=== PATIENT | female | born 1995 | race African-American/Black ===

== ENCOUNTER 2017-01-22 19:28 | Inpatient (IN) | payer OTHER ==
--- NOTE | ~2017-01-22 | A ---
[facility] Nutrition Therapy DATE: 01/23/17 Patient: JOHN BOLES Physician: JESSICA Address: [address] [place] [address] Room/Bed: [address], Zip: [place] [address] Admit Date: 01/22/17 Date of : [birth year] Height: 5 4 Weight: [phone] NUTRITIONAL ASSESSMENT: REASON: UNINTENTIONAL WEIGHT LOSS PATIENT ADMITTED FOR SI AND DEPRESSION PMH: NONE Anthropometrics: HT: 64", WT: 117#, BMI: 20.1, %IBW: 98 Labs: 01/23/17- NURITIONAL LABS WNL Meds: REMERON Assessment: PATIENT IS A 21 Y/O FEMALE ADMITTED FOR SI AND DEPRESSION. PATIENT IS CURRENTLY EMPLOYED, LIVES WITH HER MOTHER, IS A DAILY SMOKER, USES MARIJUANA DAILY, AND HAS OCCASIONAL ETOH USE. PATIENT STATED A POOR APPETITE WITH A 75# WEIGHT LOSS OVER THE LAST YEAR, AND SHE HAS NOT BEEN SLEEPING (2HRS/NIGHT). CURRENT PO INTAKES ARE NOT AVAILABLE D/T PATIENT RECENTLY ADMITTED TO FACILITY. WEIGHT HX IN [facility] DOES SHOW A STEADY WEIGHT DECREASE OVER THE LAST 4 YEARS. WEIGHT 4 YEARS AGO WAS 190# AND WEIGHT ON 05/2016 WAS 142#. PATIENT'S NUTRITION LABS WERE ALL WNL, HER BMI IS WITHIN A HEALTHY RANGE, AND SHE IS 98% OF HER IBW. PATIENT IS ON A REGULAR DIET, AND THERE ARE NO SKIN OR GI ISSUES NOTED ATT. PATIENT IS CURRENTLY ON REMERON, WHICH IS AN APPETITE STIMULANT AND SLEEP AID, AND MAY CAUSE PATIENT'S WEIGHT TO INCREASE. Dx: UNINTENTIONAL WEIGHT LOSS R/T CURRENT CONDITION, DEPRESSION AEB WEIGHT LOSS AND DECREASED APPETITE, NUTRITIONAL RISK POINT Intervention: REGULAR DIET, MEDS PER MD, PSYCH Monitoring, Evaluation and Goals: 1. ADEQUATE PO INTAKES >50% OF MEALS 2. PREVENT, CORRECT MICRO/MACRO NUTRIENT DEFICIENCIES 3. WEIGHT; PREVENT ANY FURTHER WEIGHT LOSS MONITOR: WEIGHTS, PO/FLUID INTAKES, LABS Recommendations: 1. CONTINUE REGULAR DIET TOLERATED. OFFER SNACKS BETWEEN MEALS. IF PATIENT HAS C/O HUNGER SEND ORDER FOR LARGER PORTIONS AND RD WILL APPROVE. IT WILL TAKE ~5-7 DAYS FOR REMERON TO AFFECT PATIENT'S APPETITE [facility] Nutrition Therapy DATE: 06/30/17 Patient: JOHN BOLES Physician: JESSICA Address: [address] [facility] Room/Bed: [address], Zip: [place] [address] Admit Date: 01/22/17 Date of : [birth year] Height: 5 4 Weight: [phone] 2. ENCOURAGE ADEQUATE PO AND FLUID INTAKES 3. IF PO INTAKES ARE BELOW 50% OF MEALS PLEASE ORDER ENSURE BID TO PROMOTE ADEQUATE KCAL AND PROTEIN INTAKES, AND PREVENT FURTHER WEIGHT LOSS 4. OBTAIN WEIGHTS ROUTINELY (EVERY 3-4 DAYS) RD TO F/U PER PROTOCOL AND PRN R/T PATIENT MILDLY/MODERATELY COMPROMISED Respectfully, JACQUELINE RO, JONES, LD [facility] cc: client file
--- NOTE | ~2017-01-22 | PN ---
Unit #: [id number] #: [id number] Patient: JOHN BOLES [id number] [place] [address] [id number] I MR#: [id number] NAME: JOHN BOLES ROOM: 71 Age: 21 Sex: F Admission Date: 01/22/2017 : 1995 Attending Physician: Darwin Capone M.D. Admitting Physician: Darwin Capone M.D. Primary Care Physician: Denilson Edwards M.D. [facility] PROGRESS NOTES DATE January 24, [address] Darwin Capone at [facility] DISCUSSION Upon today's assessment, the patient was abed but stated that she was feeling "much better." She reports that her mood is happier and that she currently denies suicidal or homicidal ideation, and verbalizes no plan or intent. She denies auditory or visual hallucinations. She reports that her sleep is okay and that Remeron has been very helpful in helping her to maintain her sleep at this time. Dictated by... JOVANNY Henry TD: 01/28/2017 05:23 JOB #: [id number] [facility] PROGRESS NOTES Page 1 of 1 X MAKSIM WYATT PROGRESS NOTE
--- NOTE | ~2017-01-22 | HP ---
Unit #: [id number] #: [id number] Patient: JOHANA BOLES [id number] [place] [address] [id number] I MR#: [id number] NAME: JOHANA BOLES ROOM: P181 Age: 21 Sex: F Admission Date: 01/22/2017 : 1995 Attending Physician: Darwin Capone M.D. Admitting Physician: Darwin Capone M.D. Primary Care Physician: Denilson Edwards M.D. HISTORY AND PHYSICAL HISTORY OF PRESENT ILLNESS Johana is a 21 year old admitted to [facility] with depression and verbalizing wanting to hurt herself. PAST MEDICAL HISTORY Nothing significant. PAST SURGICAL HISTORY Cholecystectomy. ALLERGIES No known drug allergies. SOCIAL HISTORY Smokes blacks on occasion. Denies alcohol. Admits to using marijuana on a daily basis. FAMILY HISTORY Medically noncontributory. REVIEW OF SYSTEMS CONSTITUTIONAL: No fever or chills. HEENT: Denies any sore throat, ear pain or runny nose. CARDIOVASCULAR: Denies chest pain, irregular heart rhythm or palpitations. CHEST: Denies shortness of breath or cough. No hemoptysis. GASTROINTESTINAL: Denies nausea, vomiting, diarrhea or chronic constipation. ENDOCRINE: Denies history of increased thirst or urination. No recent significant weight loss or gain. GENITOURINARY: Denies dysuria, frequency, or hematuria. SKIN: Denies any rashes. HEMATOLOGIC: Denies history of increased bleeding or bruising. MUSCULOSKELETAL: Denies any hot, swollen joints. No generalized muscle pain. NEUROLOGIC: Denies problems with vision or speech. No frequent, severe headaches. No numbness, tingling or weakness in any extremities. Denies loss of bladder or bowel control. CURRENT MEDICATIONS 1. Remeron 30 mg q.h.s. 2. Milk of Magnesia p.r.n. 3. Maalox p.r.n. 4. Tylenol p.r.n. Unit #: [id number] #: [id number] Patient: JOHANA BOLES 5. Nicotine patch 7 mg daily. PHYSICAL EXAMINATION GENERAL: Alert, well-nourished, in no apparent distress. VITAL SIGNS: Blood pressure 124/62, heart rate 80, respirations 16, temperature 98.6. WEIGHT: 117. HEIGHT: 5 feet 4 inches. SKIN: Warm and dry without rash or lesion. HEENT: Normocephalic. TMs not viewed. Oral and nasal passages clear. Conjunctivae clear. PERRLA. EOMs intact. NECK: Supple without lymphadenopathy or thyromegaly. HEART: Regular rate and rhythm without murmur. LUNGS: Clear. ABDOMEN: Soft, nontender. : Not done. EXTREMITIES: No evidence of cyanosis, clubbing or edema. Moves all without focal deficit. NEUROLOGICAL: Grossly within normal limits. Cranial Nerves: II: Visual hinton are intact. III, IV AND : Extraocular movements are intact. Pupils are equal, round and reactive to light. V: Facial sensation is grossly normal. VII: Facial movements and expression are normal. VIII: Auditory acuity grossly intact. IX, X: Uvula is midline. Phonation is normal. XI: Patient shrugs shoulders and turns head normally. XII: Tongue protrudes in the midline. Sensory and Motor Function: Sensory and motor sensation is grossly normal. Motor: moves all extremities well. Coordination: Gait is normal. Deep Tendon Reflexes: Intact. IMPRESSION Psychiatric admission. RECOMMENDATIONS PSYCHIATRIC: Per psychiatrist. MEDICAL: See no contraindications to participate in facility's activities. MEDICAL PROGNOSIS Good. MEDICAL CONDITION Stable. Dictated by... Madison Broussard PJohnAJohn-Angel. for Pawan Feng/benigno TD: 01/23/2017 19:21 JOB #: [id number] Unit #: [id number] #: [id number] Patient: JOHANA BOLES HISTORY AND PHYSICAL Page 1 of 1 X Madison Broussard HISTORY AND PHYSICAL
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
--- NOTE | ~2017-01-22 | DS ---
Unit #: [id number] #: [id number] Patient: JOHANA BOLES [id number] [facility] [address] [place] [address] [id number] I MR#: [id number] NAME: JOHANA BOLES ROOM: 71 Age: 21 Sex: F Admission Date: 01/22/2017 : 1995 Discharge Date: 01/26/2017 Attending Physician: Darwin Capone M.D. Primary Care Physician: Denilson Edwards M.D. DISCHARGE SUMMARY REASON FOR ADMISSION Johana is a 21-year-old woman, who is seeing a therapist at [facility] and reported increasing "breakdowns" with depression and mood liability, difficulty with sleep and appetite and suicidal ideation. She was admitted for stabilization. LABORATORY DATA Please see hospital chart. HOSPITAL COURSE Johana was admitted and placed on suicide precautions. Remeron 30 mg at bedtime was initiated for treatment of depression and insomnia, and the patient tolerated this well with improvement in sleep, less anxiety, and a brightening mood. She participated appropriately in unit groups and activities. On the date of discharge, she had a bright affect, good mood, and was able to contract for safety with no suicidal ideation, intent, or plan. DISCHARGE DIAGNOSES AXIS I: Major depression. AXIS II: No diagnosis. AXIS III: History of gallbladder surgery. AXIS IV: AXIS V: DISCHARGE INSTRUCTIONS Follow up with [facility]. DISCHARGE MEDICATIONS Remeron 30 mg at bedtime for depression. CONDITION AT DISCHARGE Improved. PROGNOSIS Good. DIET AND ACTIVITY Per primary care doctor. Dictated by... Unit #: [id number] #: [id number] Patient: JOHANA BOLES Darwin Capone M.D. [facility]/yelena TD: 02/07/2017 01:58 JOB #: [id number] DISCHARGE SUMMARY Page 1 of 1 X Darwin Capone MD X DISCHARGE SUMMARY
--- NOTE | ~2017-01-22 | PN ---
Unit #: [id number] #: [id number] Patient: JOHN BOLES [id number] [place] [address] [id number] I MR#: [id number] NAME: JOHN BOLES ROOM: 71 Age: 21 Sex: F Admission Date: 01/22/2017 : 1995 Attending Physician: Darwin Capone M.D. Admitting Physician: Darwin Capone M.D. Primary Care Physician: Denilson Edwards M.D. [facility] PROGRESS NOTES DATE January 25, [address] Darwin Capone at [facility] DISCUSSION This patient was seen and assessed on January 25, 2017. Upon assessment today, the patient reports that she is okay, that her mood is good. Her affect is happy and much brighter and she smiled at this provider. At this time, she reports no suicidal or homicidal ideation, and verbalizes no plan or intent. She denies auditory or visual hallucinations and no overt symptoms of psychosis was noted. She reports that she looks forward and hopes to discharge on Thursday upon speaking with her attending, Dr. Capone, and she states that she has plans to continue to follow up with her therapist, Dora Colby at [facility] as well as continue with medication management. She reports compliance with her medications at this time and states that they are helpful. Dictated by... JOVANNY Henry TD: 01/28/2017 06:49 JOB #: [id number] [facility] PROGRESS NOTES Page 1 of 1 X MAKSIM WYATT PROGRESS NOTE
[~2017-01-22 19:28] MED LIST: AMOXICILLIN PO; AMOXICILLIN500 M1 PO; AMOXICILLIN875 MG PO; BACTRIM DS TABL1 TA1 PO; BENTYL10 MG PO; BENZONATATE PO; CLARITIN10 M3 PO; DICLOFENAC PO; DICLOFENAC SODI50 MG PO; DIFLUCAN PO; FLAGYL PO; FLONASE16 GM; HYDROXYZINE HCL25 M1 DOB; NO MEDICATIONS; NORFLEX100 M1 PO; ORUDIS75 M1 PO; PEPCID AC20 M2 PO; ROBAXIN500 MG PO; SUDAFED30 M1 PO; TRIAMCINOLONE A15 G3 EXT; TYLENOL #3 PO; ULTRAM PO; VOLTAREN50 MG PO; ZOFRAN PO; ZOVIRAX800 MG PO
[2017-01-23 10:05] LABS: BASOPHIL% 0.9 % (0-2.5); EOSINOPHIL# 0.2 X10e3 (0-0.7); EOSINOPHIL% 3.5 % (0.0-7.0); HEMATOCRIT 37.3 % (35.0-45.0); HEMOGLOBIN 12.3 gm/dL (12.0-16.0); LYMPHOCYTE# 2.2 X10e3 (1.0-3.5); LYMPHOCYTE% 39.2 % (17.0-45.0); MEAN CELL VOLUME 96.5 FL (83-96); MEAN CORPUSCULAR HEMOGLOBIN 31.8 PG (28-34); MEAN CORPUSCULAR HGB CONC 32.9 g/dL (30-36); MEAN PLATELET VOLUME 8.5 FL (6.5-11.5); MONOCYTE# 0.6 X10e3 (0-1.0); MONOCYTE% 10.4 % (3.0-12.0); NEUTROPHIL# 2.5 X10e3 (1.5-7.1); PLATELET COUNT 259 X10e3 (140-420); RED BLOOD COUNT 3.87 X10e (3.90-5.30); RED CELL DISTRIBUTION WIDTH 13.9 % (11.0-15.5); WHITE BLOOD COUNT 5.5 X10e3 (4.0-10.5)
[2017-01-23 10:13] LABS: ALBUMIN SERUM 3.7 g/dL (3.5-5.0); BILIRUBIN,TOTAL 0.6 mg/dL (0.2-2.0); BUN/CREATININE RATIO 14.28; CALCIUM SERUM 8.9 mg/dL (8.4-10.2); CREATININE SERUM 0.7 mg/dL (0.6-1.4); GLOM FILT RATE Estimated 141.5 mL/min (>60); POTASSIUM 3.9 mmol/L (3.5-5.1); PROTEIN TOTAL SERUM 6.1 g/dL (6.0-8.3)
[2017-01-23 10:21] LABS: DIFF IND NO
[2017-01-23 13:11] LABS: URINE APPEARANCE CLOUDY; URINE BILIRUBIN NEG (NEG); URINE BLOOD 3+ (NEG); URINE COLOR YELLOW; URINE GLUCOSE NEG (NEG); URINE KETONE TRACE (NEG); URINE LEUKOCYTE ESTERASE TRACE (NEG); URINE NITRATE NEG (NEG); URINE PH 5.5 (5-8); URINE PROTEIN 3+ (NEG); URINE SPECIFIC GRAVITY 1.021 (1.003-1.035); URINE UROBILINOGEN 0.2 MG/DL (NEG)
[2017-01-23 13:13] LABS: URBCS1 AUWI INNUM /[HPF] (0-2); URINE BACTERIA AUWI 1+ (NEGATIVE); URINE SQUAMOUS EPITHELIAL CELL OCC /[HPF]; UWBCS1 AUWI 25-50 (0-5)
[2017-01-23 13:32] LABS: AMPHETAMINE NEG (NEG); BARBITURATES NEG (NEG); BENZODIAZEPINES NEG (NEG); COCAINE NEG (NEG); MARIJUANA POS (NEG); OPIATES NEG (NEG); TRICYCLIC ANTIDEPRESSANTS NEG (NEG); U METHADONE NEG (NEG)
[2017-01-23 13:42] LABS: URINE MUCUS PRESENT
== END 2017-01-26 12:15 | disposition home or self-care (01) | DRG 881 ==
LOC: P1E 21:46
PROVIDERS: Psychiatry & Neurology Psychiatry
DX: F32.9 Major depressive disorder, single episode, unspecified (principal)
CPT/HCPCS: 80053; 80307; 81003; 84703; 85025